=== PATIENT | female | born 1950 | race Caucasian/White ===

== ENCOUNTER 2024-07-11 19:40 | Emergency (ER) | payer OTHER, MEDICAID ==
[~2024-07-11] VITALS: Ht 154.9 cm; Wt 71.7 kg
[2024-07-11 22:37] VITALS: BP 143/79; TEMP 98.3; O2SAT 96
== END 2024-07-11 22:38 ==
LOC: ER 19:40
DX: S61.012A Laceration without foreign body of left thumb without damage to nail, initial encounter (principal); R03.0 Elevated blood-pressure reading, without diagnosis of hypertension; M79.7 Fibromyalgia; Z86.73 Personal history of transient ischemic attack (TIA), and cerebral infarction without residual deficits; Z88.0 Allergy status to penicillin
CPT/HCPCS: A4606; A4663